=== PATIENT | female | born 1960 | race Caucasian/White ===

== ENCOUNTER 2017-08-11 14:15 | Emergency (ER) | payer OTHER ==
[2017-08-11 14:31] VITALS: BP 122/74; PULSE 88; RESP 16; TEMP 97.9; O2SAT 94
[2017-08-11] MEDS ORDERED: IBUPROFEN 200 MG TAB PO ONE (14:35)
--- NOTE | 2017-08-11 15:08 | EDPHY ---
H & P Time Seen by Provider: 08/11/17 15:03 HPI/ROS: 57-year-old female presents complaining of left wrist pain she states that began after rough-housing with her grandchildren. She believes maybe someone stepped on her wrist or bent and funny direction she cannot recall. She has had achiness in her wrist since that time. Review of systems As per HPI General no fever no chills no weakness HEENT no eye pain no eye discharge. No eye redness, no sore throat Respiratory no cough, no shortness of breath Cardiac no chest pain, no peripheral edema GI no abdominal pain, no diarrhea, no constipation, no nausea, no vomiting no flank pain, no hematuria, no dysuria Musculoskeletal no myalgias, positive joint pain Heme no easy bruising, no easy bleeding Endo no polyuria, no polydipsia Skin no rashes, no pruritus Neuro no syncope, no dizziness, no headaches Psych is no suicidal ideation, no homicidal ideation Past Medical/Surgical History: Noncontributory Social History: Denies alcohol or drug use Smoking Status: Never smoked Physical Exam: 57-year-old female Alert and oriented in no acute distress nontoxic appearance, afebrile Atraumatic normocephalic Neck no JVD Lungs clear to auscultation, no respiratory distress Heart regular rate and rhythm Extremities no cyanosis clubbing edema Left wrist-no erythema no swelling no ecchymosis Full range of motion, good capillary refill normal sensation Diffusely tender to palpation Constitutional: Initial Vital Signs Temperature (C) 36.6 C 08/11/17 14:24 Heart Rate 88 08/11/17 14:24 Respiratory Rate 16 08/11/17 14:24 Blood Pressure 122/74 H 08/11/17 14:24 O2 Sat (%) 94 08/11/17 14:24 O2 Delivery Mode Room Air Allergies/Adverse Reactions: No Known Allergies Allergy (Verified 08/11/17 14:24) Home Medications: Medication Instructions Recorded Trazadone 09/08/10 Cymbalta 06/20/11 LORazepam 07/12/16 Medical Decision Making - Diagnostics Imaging Results: Imaging Impressions Wrist X-Ray 08/11/17 14:30 Impression: No acute osseous findings. ED Course/Re-evaluation: Patient seen and evaluated for left wrist pain. X-ray Negative Impression Left wrist contusion/sprain Plan Velcro wrist splint Rest, ice, elevation Differential Diagnosis: Wrist contusion , wrist sprain , wrist fracture - Data Points Medications Given: Discontinued Medications Ibuprofen (Motrin) 400 mg PO EDNOW ONE Stop: 08/11/17 14:36 Last Admin: 08/11/17 14:46 Dose: 400 mg Departure - Departure Disposition: Home, Routine, Self-Care Clinical Impression: Left wrist sprain Condition: Good Instructions: Wrist Sprain (ED) Referrals: Cristy Contreras DO [Primary Care Provider] - As per Instructions Keyona Landaverde MD [Medical Doctor] - As per Instructions
== END 2017-08-11 15:12 | disposition home or self-care (01) ==
LOC: CED 14:15
DX: S63.502A Unspecified sprain of left wrist, initial encounter (principal); X58.XXXA Exposure to other specified factors, initial encounter; Y99.8 Other external cause status; Y93.83 Activity, rough housing and horseplay
CPT/HCPCS: 73110-PO; L3908

== ENCOUNTER 2018-07-19 08:02 | Emergency (ER) | payer OTHER ==
[2018-07-19 08:10] VITALS: BP 145/98
[2018-07-19] MEDS ORDERED: GENTAMICIN 0.3% DROPS PREPACK OPHT.BTL TAKEHOME ONE (08:23)
--- NOTE | 2018-07-19 08:27 | EDPHY ---
H & P Stated Complaint: Bilateral itchy, crusty eyes for 24 hours. Time Seen by Provider: 07/19/18 08:08 HPI/ROS: Chief Complaint: Eye discharge HPI: 58-year-old woman presenting with bilateral eye discharge and crusting and itching. Patient states she woke up with her left eye matted shut with yellowish discharge. She has had copious tearing in irritation. They itchy. She did notice some redness in both of her eyes. No changes in her vision. No recent trauma or injuries. She does not wear contact lenses. ROS: 10 systems were reviewed and were negative except those elements noted in the HPI. PMH: Depression, Crohn's disease, colon cancer Social History: [No] smoking, [no] alcohol, [ no recreational drug use] Family History: [non-contributory] Physical Exam: General: Awake alert, no acute distress Eyes: Bilateral conjunctival injection, increased tearing, no significant mucoid purulent discharge. Left is worse than the right Face: No preauricular lymphadenopathy. Skin: No rash - Personal History Current Tetanus/Diphtheria Vaccine: Unsure Current Tetanus Diphtheria and Acellular Pertussis (TDAP): Unsure - Medical/Surgical History Hx Asthma: Yes Hx Chronic Respiratory Disease: No Hx Diabetes: No Hx Cardiac Disease: No Hx Renal Disease: No Hx Cirrhosis: No Hx Alcoholism: No Hx HIV/AIDS: No Hx Splenectomy or Spleen Trauma: No Other PMH: Med hx-back pain,asthma,colon CA-2010,crohn's. Surg-resection of bowel-2015,c-sect,knee issues, ORIF ankle. - Social History Smoking Status: Never smoked Constitutional: Initial Vital Signs Temperature (C) 36.7 C 07/19/18 08:08 Heart Rate 90 07/19/18 08:08 Respiratory Rate 16 07/19/18 08:08 Blood Pressure 145/98 H 07/19/18 08:08 O2 Sat (%) 97 07/19/18 08:08 O2 Delivery Mode Room Air Allergies/Adverse Reactions: niacin Allergy (Intermediate, Verified 07/19/18 08:07) Itching Home Medications: Medication Instructions Recorded Trazadone 09/08/10 Cymbalta 06/20/11 LORazepam 07/12/16 Xiidra 07/19/18 Medical Decision Making ED Course/Re-evaluation: I have explained to the patient that she has a likely viral conjunctivitis. She is concerned because she is going out of town to awaiting today in [place]. She is requesting antibiotics at this time. I have explained that as a viral process this is not likely to help but she states she would feel better if she had some medicine. Have will therefore give her gentamicin drops to treat a possible bacterial conjunctivitis or to prevent a secondary infection. Departure - Departure Disposition: Home, Routine, Self-Care Clinical Impression: Acute conjunctivitis of both eyes Condition: Good Instructions: Conjunctivitis (ED) Additional Instructions: Apply 1-2 drops of the gentamicin in each eye every 4 hr for the next 5 days. Follow up with primary care physician in 3-4 days if symptoms are not improving. Referrals: Lexie Drummond MD [Primary Care Provider] - As per Instructions
== END 2018-07-19 08:42 | disposition home or self-care (01) ==
LOC: CED 08:02
DX: H10.33 Unspecified acute conjunctivitis, bilateral (principal)